=== PATIENT | male | born 1950 | race Caucasian/White ===

== ENCOUNTER 2018-04-30 09:03 | Inpatient (IN) | payer MEDICAID ==
[2018-04-30 09:35] LABS: ADD MAN DIFF? NO
[2018-04-30 09:37] LABS: BASOPHIL # 0.1 10^3/ul (0.0-0.1); BASOPHILS % 0.5 % (0.0-2.0); EOSINOPHILS # 0.4 10^3/ul (0.0-0.5); EOSINOPHILS % 3.4 % (0.0-7.0); HEMATOCRIT 40.7 % (42.0-52.0); HEMOGLOBIN 13.6 g/dl (14.0-18.0); LYMPHOCYTES # 2.8 10^3/ul (0.8-2.9); LYMPHOCYTES % 23.1 % (15.0-51.0); MEAN CORPUSCULAR HEMOGLOBIN 29.7 pg (29.0-33.0); MEAN CORPUSCULAR HGB CONC 33.4 g/dl (32.0-37.0); MEAN CORPUSCULAR VOLUME 88.9 fl (82.0-101.0); MEAN PLATELET VOLUME 9.8 fl (7.4-10.4); MONOCYTE # 0.6 10^3/ul (0.3-0.9); NEUTROPHIL # 8.4 10^3/ul (1.6-7.5); NEUTROPHILS % 67.8 % (39.0-77.0); PLATELET COUNT 330 10^3/UL (140-415); RED BLOOD COUNT 4.58 10^6/ul (4.70-6.10); RED CELL DISTRIBUTION WIDTH 14.2 % (11.5-14.5)
[2018-04-30 09:37] LABS: WHITE BLOOD COUNT 12.3 10^3/ul (4.8-10.8)
[2018-04-30 09:48] LABS: HEMOGLOBIN A1C 5.4 % (0-5.9)
[2018-04-30 09:56] LABS: ANION GAP 9 (5-13); BLOOD UREA NITROGEN 11 mg/dl (7-20); CALCIUM 9.4 mg/dl (8.4-10.2); CARBON DIOXIDE 28 mmol/L (21-31); CHLORIDE 103 mmol/L (97-110); CHOL/HDL RATIO 4.1 RATIO; CHOLESTEROL 221 mg/dl (100-200); CREATINE KINASE 218 IU/L (23-200); CREATININE 0.88 mg/dl (0.61-1.24); GLUCOSE 102 mg/dl (70-220); HDL CHOLESTEROL 53 mg/dl (30-78); INR 0.91; LDL CHOLESTEROL,CALCULATED 154 mg/dl; POTASSIUM 4.1 mmol/L (3.5-5.1); PROTIME 12.3 Sec (11.9-14.9); SODIUM 140 mmol/L (135-144); TRIGLYCERIDES 72 mg/dl (0-149)
[2018-04-30 09:57] LABS: PARTIAL THROMBOPLASTIN TIME 32.7 Sec (23.0-35.0)
[2018-04-30 10:06] LABS: CK INDEX 1.4; CK-MB 2.95 ng/ml (0.0-2.4); TROPONIN-I < 0.012 ng/ml (0.000-0.120)
[2018-04-30 10:32] LABS: ETHANOL < 10.0 mg/dl
[2018-04-30] MEDS: ASPIRIN (EC) 81 MG TAB PO (10:37)
[2018-04-30] MEDS ORDERED: ONDANSETRON 4 MG INJ IV ×2 (11:00→14:00)
[2018-04-30] MEDS ORDERED: ACETAMINOPHEN 325 MG TAB PO (11:00)
[2018-04-30 11:28] LABS: ADD UMIC YES; UR ASCORBIC ACID NEGATIVE (NEGATIVE); UR BILIRUBIN (Dip) NEGATIVE (NEGATIVE); UR BLOOD (Dip) 2+ mg/dL (NEGATIVE); UR CLARITY CLEAR (CLEAR); UR COLOR COLORLESS (YELLOW); UR GLUCOSE (Dip) NEGATIVE (NEGATIVE); UR KETONES (Dip) NEGATIVE (NEGATIVE); UR LEUKOCYTE ESTERASE (Dip) NEGATIVE Leu/ul (NEGATIVE); UR NITRITE (Dip) NEGATIVE (NEGATIVE); UR RBC 0 /HPF (0-5); UR SPECIFIC GRAVITY (Dip) 1.002 (1.003-1.030); UR TOTAL PROTEIN (Dip) NEGATIVE (NEGATIVE); UR UROBILINOGEN (Dip) NEGATIVE (NEGATIVE); UR WBC 0 /HPF (0-5)
[2018-04-30 12:00] LABS: AMPHETAMINE/METHAMPHETAMINE Negative (NEGATIVE); BARBITURATES Negative (NEGATIVE); BENZODIAZEPINES Negative (NEGATIVE); CANNABINOIDS Negative (NEGATIVE); COCAINE Negative (NEGATIVE); OPIATES Negative (NEGATIVE)
[2018-04-30] MEDS ORDERED: NACL 0.9% 3 ML SYG IV (14:00)
[2018-04-30] MEDS: SOD CHLORIDE 0.9% 100 ML (15:09)
[2018-04-30] MEDS: IOHEXOL 100 ML (15:09)
[2018-04-30 16:24] LABS: CREATINE KINASE 188 IU/L (23-200)
[2018-04-30 16:34] LABS: CK INDEX 1.1; CK-MB 2.02 ng/ml (0.0-2.4); TROPONIN-I < 0.012 ng/ml (0.000-0.120)
[2018-04-30] MEDS: ACETAMINOPHEN 325 MG TAB PO (16:57)
[2018-04-30] MEDS: DOCUSATE SODIUM 100 MG CAP PO (16:58)
[2018-04-30] MEDS: hydrALAzine 20 MG INJ IV (20:36)
[2018-04-30] MEDS: FAMOTIDINE 20 MG TAB PO (20:36)
[2018-04-30] MEDS: ATORVASTATIN 80 MG TAB PO (20:36)
[2018-04-30 22:38] LABS: CREATINE KINASE 163 IU/L (23-200)
[2018-04-30 22:51] LABS: CK-MB 1.64 ng/ml (0.0-2.4); TROPONIN-I < 0.012 ng/ml (0.000-0.120)
[2018-05-01 05:11] LABS: ADD MAN DIFF? NO
[2018-05-01 05:27] LABS: WHITE BLOOD COUNT 9.1 10^3/ul (4.8-10.8)
[2018-05-01 05:27] LABS: BASOPHIL # 0.1 10^3/ul (0.0-0.1); BASOPHILS % 0.7 % (0.0-2.0); EOSINOPHILS # 0.7 10^3/ul (0.0-0.5); EOSINOPHILS % 7.6 % (0.0-7.0); HEMATOCRIT 40.2 % (42.0-52.0); HEMOGLOBIN 13.6 g/dl (14.0-18.0); LYMPHOCYTES # 2.5 10^3/ul (0.8-2.9); LYMPHOCYTES % 27.9 % (15.0-51.0); MEAN CORPUSCULAR HEMOGLOBIN 29.9 pg (29.0-33.0); MEAN CORPUSCULAR HGB CONC 33.8 g/dl (32.0-37.0); MEAN CORPUSCULAR VOLUME 88.4 fl (82.0-101.0); MEAN PLATELET VOLUME 10.3 fl (7.4-10.4); MONOCYTE # 0.6 10^3/ul (0.3-0.9); MONOCYTES % 6.9 % (0.0-11.0); NEUTROPHIL # 5.1 10^3/ul (1.6-7.5); NEUTROPHILS % 56.6 % (39.0-77.0); PLATELET COUNT 327 10^3/UL (140-415); RED BLOOD COUNT 4.55 10^6/ul (4.70-6.10); RED CELL DISTRIBUTION WIDTH 14.2 % (11.5-14.5)
[2018-05-01 05:45] LABS: ALANINE AMINOTRANSFERASE 25 IU/L (13-69); ALBUMIN 3.4 g/dl (3.3-4.9); ALBUMIN/GLOBULIN RATIO 1.06; ALKALINE PHOSPHATASE 75 IU/L (42-121); ANION GAP 9 (5-13); ASPARTATE AMINO TRANSFERASE 30 IU/L (15-46); BILIRUBIN,INDIRECT 0.5 mg/dl (0-1.1); BILIRUBIN,TOTAL 0.5 mg/dl (0.2-1.3); BLOOD UREA NITROGEN 18 mg/dl (7-20); CALCIUM 9.3 mg/dl (8.4-10.2); CARBON DIOXIDE 28 mmol/L (21-31); CHLORIDE 103 mmol/L (97-110); CREATININE 1.17 mg/dl (0.61-1.24); GLUCOSE 96 mg/dl (70-220); POTASSIUM 3.5 mmol/L (3.5-5.1); SODIUM 140 mmol/L (135-144); TOTAL PROTEIN 6.6 g/dl (6.1-8.1)
[2018-05-01] MEDS: ASPIRIN 81 MG TAB PO (08:56)
[2018-05-01] MEDS: LISINOPRIL 10 MG TAB PO (08:57)
[2018-05-01] MEDS: HYDROCHLOROTHIAZIDE 12.5 MG CAP PO (08:57)
[2018-05-01] MEDS: FAMOTIDINE 20 MG TAB PO ×2 (08:58→21:24)
[2018-05-01] MEDS: ATORVASTATIN 80 MG TAB PO (21:24)
[2018-05-02] MEDS: ASPIRIN 81 MG TAB PO (08:54)
[2018-05-02] MEDS: LISINOPRIL 10 MG TAB PO (08:54)
[2018-05-02] MEDS: HYDROCHLOROTHIAZIDE 12.5 MG CAP PO (08:55)
[2018-05-02] MEDS: FAMOTIDINE 20 MG TAB PO (08:55)
== END 2018-05-02 12:40 | disposition home or self-care (01) | DRG 65 ==
LOC: E/R 09:03 → 6WM 10:49
DX: I63.81 Other cerebral infarction due to occlusion or stenosis of small artery (principal); G81.94 Hemiplegia, unspecified affecting left nondominant side; R29.810 Facial weakness; I10 Essential (primary) hypertension; R47.81 Slurred speech; Z72.0 Tobacco use; E78.00 Pure hypercholesterolemia, unspecified; I67.1 Cerebral aneurysm, nonruptured
CPT/HCPCS: 70450; 70496; 70498; 70551; 71045; 80048; 80053; 80061; 80307; 81001; 82550; 82553; 83036; 84484; 85025; 85610; 85730; 90686; 92610; 93005; 93306; 93308; 97161; 97166; 99285-25

== ENCOUNTER 2018-09-13 13:50 | Observation (INO) | payer SELFPAY, MEDICAID ==
[2018-09-13 14:21] LABS: ADD MAN DIFF? NO
[2018-09-13 14:25] LABS: BASOPHILS % 0.4 % (0.0-2.0); EOSINOPHILS # 0.7 10^3/ul (0.0-0.5); EOSINOPHILS % 7.6 % (0.0-7.0); HEMATOCRIT 37.4 % (42.0-52.0); HEMOGLOBIN 12.2 g/dl (14.0-18.0); LYMPHOCYTES # 2.8 10^3/ul (0.8-2.9); LYMPHOCYTES % 28.8 % (15.0-51.0); MEAN CORPUSCULAR HEMOGLOBIN 29.2 pg (29.0-33.0); MEAN CORPUSCULAR HGB CONC 32.6 g/dl (32.0-37.0); MEAN CORPUSCULAR VOLUME 89.5 fl (82.0-101.0); MEAN PLATELET VOLUME 9.7 fl (7.4-10.4); MONOCYTE # 0.8 10^3/ul (0.3-0.9); MONOCYTES % 8.2 % (0.0-11.0); NEUTROPHIL # 5.2 10^3/ul (1.6-7.5); NEUTROPHILS % 54.7 % (39.0-77.0); PLATELET COUNT 319 10^3/UL (140-415); RED BLOOD COUNT 4.18 10^6/ul (4.70-6.10); RED CELL DISTRIBUTION WIDTH 13.4 % (11.5-14.5)
[2018-09-13 14:25] LABS: WHITE BLOOD COUNT 9.6 10^3/ul (4.8-10.8)
[2018-09-13 14:34] LABS: HEMOGLOBIN A1C 5.8 % (0-5.9)
[2018-09-13 14:47] LABS: INR 0.89; PROTIME 12.2 Sec (11.9-14.9)
[2018-09-13 14:48] LABS: PARTIAL THROMBOPLASTIN TIME 28.2 Sec (23.0-35.0)
[2018-09-13 14:49] LABS: ALBUMIN/GLOBULIN RATIO 1.29; ANION GAP 11 (5-13); CHOL/HDL RATIO 2.7 RATIO; Estimated GFR > 60 mL/min (>60); LDL CHOLESTEROL,CALCULATED 70 mg/dl
[2018-09-13 14:50] LABS: ALANINE AMINOTRANSFERASE 35 IU/L (13-69); ALBUMIN 4.4 g/dl (3.3-4.9); ALKALINE PHOSPHATASE 80 IU/L (42-121); ASPARTATE AMINO TRANSFERASE 34 IU/L (15-46); BILIRUBIN,INDIRECT 0.2 mg/dl (0-1.1); BILIRUBIN,TOTAL 0.2 mg/dl (0.2-1.3); BLOOD UREA NITROGEN 32 mg/dl (7-20); CALCIUM 9.6 mg/dl (8.4-10.2); CARBON DIOXIDE 33 mmol/L (21-31); CHLORIDE 99 mmol/L (97-110); CHOLESTEROL 146 mg/dl (100-200); CREATINE KINASE 105 IU/L (23-200); CREATININE 1.14 mg/dl (0.61-1.24); GLUCOSE 129 mg/dl (70-220); HDL CHOLESTEROL 54 mg/dl (30-78); POTASSIUM 3.9 mmol/L (3.5-5.1); SODIUM 143 mmol/L (135-144); TOTAL PROTEIN 7.8 g/dl (6.1-8.1); TRIGLYCERIDES 111 mg/dl (0-149)
[2018-09-13 15:01] LABS: CK INDEX 1.1; CK-MB 1.16 ng/ml (0.0-2.4); TROPONIN-I < 0.012 ng/ml (0.000-0.120)
[2018-09-13 15:40] LABS: AMPHETAMINE/METHAMPHETAMINE Negative (NEGATIVE); BARBITURATES Negative (NEGATIVE); BENZODIAZEPINES Negative (NEGATIVE); CANNABINOIDS Negative (NEGATIVE); COCAINE Negative (NEGATIVE); OPIATES Negative (NEGATIVE)
[2018-09-13 15:42] LABS: ADD UMIC YES; UR ASCORBIC ACID NEGATIVE (NEGATIVE); UR BILIRUBIN (Dip) NEGATIVE (NEGATIVE); UR BLOOD (Dip) 2+ mg/dL (NEGATIVE); UR CLARITY CLEAR (CLEAR); UR COLOR YELLOW (YELLOW); UR GLUCOSE (Dip) NEGATIVE (NEGATIVE); UR KETONES (Dip) NEGATIVE (NEGATIVE); UR LEUKOCYTE ESTERASE (Dip) NEGATIVE Leu/ul (NEGATIVE); UR NITRITE (Dip) NEGATIVE (NEGATIVE); UR RBC 9 /HPF (0-5); UR SPECIFIC GRAVITY (Dip) 1.018 (1.003-1.030); UR TOTAL PROTEIN (Dip) NEGATIVE (NEGATIVE); UR UROBILINOGEN (Dip) NEGATIVE (NEGATIVE); UR WBC 0 /HPF (0-5)
[2018-09-13] MEDS ORDERED: ACETAMINOPHEN 325 MG TAB PO ×2 (16:30→18:30)
[2018-09-13] MEDS ORDERED: ONDANSETRON 4 MG INJ IV ×2 (16:30→18:30)
[2018-09-13] MEDS ORDERED: NACL 0.9% 3 ML SYG IV (18:30)
[2018-09-13] MEDS ORDERED: ZOLPIDEM 5 MG TAB PO (18:30)
[2018-09-13] MEDS ORDERED: DOCUSATE SODIUM 100 MG CAP PO (18:30)
[2018-09-13] MEDS ORDERED: HYDROCODONE/APAP (5/325) TAB PO (18:30)
[2018-09-13] MEDS ORDERED: morphine 2 MG INJ IV (18:30)
[2018-09-13] MEDS: ATORVASTATIN 80 MG TAB PO (20:16)
[2018-09-14 05:56] LABS: ADD MAN DIFF? NO
[2018-09-14 06:01] LABS: BASOPHILS % 0.4 % (0.0-2.0); EOSINOPHILS # 0.8 10^3/ul (0.0-0.5); HEMATOCRIT 36.4 % (42.0-52.0); HEMOGLOBIN 11.8 g/dl (14.0-18.0); LYMPHOCYTES # 2.4 10^3/ul (0.8-2.9); LYMPHOCYTES % 26.4 % (15.0-51.0); MEAN CORPUSCULAR HEMOGLOBIN 28.8 pg (29.0-33.0); MEAN CORPUSCULAR HGB CONC 32.4 g/dl (32.0-37.0); MEAN CORPUSCULAR VOLUME 88.8 fl (82.0-101.0); MEAN PLATELET VOLUME 10.1 fl (7.4-10.4); MONOCYTE # 0.7 10^3/ul (0.3-0.9); MONOCYTES % 8.1 % (0.0-11.0); NEUTROPHIL # 5.1 10^3/ul (1.6-7.5); NEUTROPHILS % 55.8 % (39.0-77.0); PLATELET COUNT 273 10^3/UL (140-415); RED CELL DISTRIBUTION WIDTH 13.6 % (11.5-14.5)
[2018-09-14 06:01] LABS: WHITE BLOOD COUNT 9.2 10^3/ul (4.8-10.8)
[2018-09-14 06:19] LABS: HEMOGLOBIN A1C 5.9 % (0-5.9)
[2018-09-14 06:42] LABS: ANION GAP 7 (5-13); BLOOD UREA NITROGEN 29 mg/dl (7-20); CALCIUM 9.3 mg/dl (8.4-10.2); CARBON DIOXIDE 29 mmol/L (21-31); CHLORIDE 105 mmol/L (97-110); CHOL/HDL RATIO 2.8 RATIO; CHOLESTEROL 137 mg/dl (100-200); CREATININE 0.98 mg/dl (0.61-1.24); Estimated GFR > 60 mL/min (>60); GLUCOSE 98 mg/dl (70-220); HDL CHOLESTEROL 48 mg/dl (30-78); LDL CHOLESTEROL,CALCULATED 71 mg/dl; MAGNESIUM 2.3 mg/dl (1.7-2.5); PHOSPHORUS 4.3 mg/dl (2.5-4.9); POTASSIUM 3.9 mmol/L (3.5-5.1); SODIUM 141 mmol/L (135-144); TRIGLYCERIDES 90 mg/dl (0-149)
[2018-09-14] MEDS: ASPIRIN (EC) 81 MG TAB PO (08:47)
[2018-09-14] MEDS: HYDROCHLOROTHIAZIDE 25 MG TAB PO (08:48)
[2018-09-14] MEDS: LISINOPRIL 20 MG TAB PO (08:48)
[2018-09-14] MEDS: ENOXAPARIN 40 MG/0.4 ML SYG SC (08:50)
[2018-09-14] MEDS ORDERED: morphine LIQ (10 MG/5 ML) CUP PO (15:30)
[2018-09-14] MEDS: ATORVASTATIN 80 MG TAB PO (20:59)
[2018-09-15 06:09] LABS: ADD MAN DIFF? NO
[2018-09-15 06:11] LABS: BASOPHIL # 0.1 10^3/ul (0.0-0.1); BASOPHILS % 0.6 % (0.0-2.0); EOSINOPHILS # 0.9 10^3/ul (0.0-0.5); EOSINOPHILS % 9.6 % (0.0-7.0); HEMATOCRIT 35.2 % (42.0-52.0); HEMOGLOBIN 11.7 g/dl (14.0-18.0); LYMPHOCYTES # 2.8 10^3/ul (0.8-2.9); LYMPHOCYTES % 30.8 % (15.0-51.0); MEAN CORPUSCULAR HEMOGLOBIN 29.4 pg (29.0-33.0); MEAN CORPUSCULAR HGB CONC 33.2 g/dl (32.0-37.0); MEAN CORPUSCULAR VOLUME 88.4 fl (82.0-101.0); MEAN PLATELET VOLUME 10.4 fl (7.4-10.4); MONOCYTE # 0.8 10^3/ul (0.3-0.9); MONOCYTES % 8.8 % (0.0-11.0); NEUTROPHIL # 4.5 10^3/ul (1.6-7.5); NEUTROPHILS % 49.9 % (39.0-77.0); PLATELET COUNT 293 10^3/UL (140-415); RED BLOOD COUNT 3.98 10^6/ul (4.70-6.10); RED CELL DISTRIBUTION WIDTH 13.4 % (11.5-14.5)
[2018-09-15 06:11] LABS: WHITE BLOOD COUNT 9.1 10^3/ul (4.8-10.8)
[2018-09-15 06:45] LABS: MAGNESIUM 2.2 mg/dl (1.7-2.5)
[2018-09-15 06:45] LABS: PHOSPHORUS 4.9 mg/dl (2.5-4.9)
[2018-09-15 07:04] LABS: ANION GAP 11 (5-13); BLOOD UREA NITROGEN 28 mg/dl (7-20); CALCIUM 9.5 mg/dl (8.4-10.2); CARBON DIOXIDE 28 mmol/L (21-31); CHLORIDE 101 mmol/L (97-110); CREATININE 1.07 mg/dl (0.61-1.24); Estimated GFR > 60 mL/min (>60); GLUCOSE 107 mg/dl (70-220); POTASSIUM 3.4 mmol/L (3.5-5.1); SODIUM 140 mmol/L (135-144)
[2018-09-15] MEDS: ASPIRIN (EC) 81 MG TAB PO (09:02)
[2018-09-15] MEDS: LISINOPRIL 20 MG TAB PO (09:03)
[2018-09-15] MEDS: HYDROCHLOROTHIAZIDE 25 MG TAB PO (09:04)
[2018-09-15] MEDS: ENOXAPARIN 40 MG/0.4 ML SYG SC (09:08)
[2018-09-15] MEDS: POTASSIUM CHLORIDE (SR) 20 MEQ TAB PO (13:14)
== END 2018-09-15 14:15 | disposition home or self-care (01) ==
LOC: 2NE 17:30 → E/R 13:50 → 2NE 16:06
DX: I69.354 Hemiplegia and hemiparesis following cerebral infarction affecting left non-dominant side (principal); I10 Essential (primary) hypertension; E78.00 Pure hypercholesterolemia, unspecified; E78.5 Hyperlipidemia, unspecified; R73.03 Prediabetes; Z79.82 Long term (current) use of aspirin; Z87.891 Personal history of nicotine dependence
CPT/HCPCS: 36415; 70450; 70551; 71045; 80048; 80053; 80061; 80307; 81001; 82550; 82553; 83036; 83735; 84100; 84484; 85025; 85610; 85730; 92610; 93005; 97162; 99285-25; G0378